=== PATIENT | male | born 1985 | race Caucasian/White ===

== ENCOUNTER 2020-10-12 08:26 | Emergency (ER) | payer OTHER ==
[~2020-10-12] VITALS: Ht 177.8 cm; Wt 93.0 kg
[2020-10-12 08:30] VITALS: BP 137/90
--- NOTE | 2020-10-12 09:23 | PHYS DOC ---
Past History Past Medical History: No Pertinent History Past Surgical History: No Surgical History Alcohol Use: Occasionally Adult General Chief Complaint Chief Complaint: BACK PAIN - NO INJURY [facility] HPI Patient is a 34-year-old man previously healthy male who presents to the emergency room complaining of low back pain that started after he played golf [employer] this week. He has had pain like this previously. He is not sure what causes the pain. He states it feels like a spasm. He took Robaxin last night which helps but he cannot take it during the day because it makes him very sleepy and he cannot think straight. He denies any difficulty with bladder or bowels. He denies any difficulty with numbness or weakness. He has not had any kind of fevers. He denies any trauma. Review of Systems Review of Systems Complete ROS is negative unless otherwise documented in HPI Allergies Allergies Allergies Coded Allergies Type Severity Reaction Last Updated Verified No Known Drug Allergies 10/12/20 No Physical Exam Physical Exam General: Awake, alert, NAD. Well Nourished, well hydrated. Cooperative HEENT: Atraumatic, EOMI, PERRL, airway patent, moist oral mucosa Neck: Supple, trachea midline Respiratory: CTA bilaterally, normal effort, no wheezing/crackles CV: RRR, no murmur, cap refill <2 GI: Soft, nondistended, nontender, no masses MSK: No obvious deformities, no spinal tenderness, back appears normal and symmetrical Skin: Warm, dry, intact Neuro: A&O x3, speech NL, sensory and motor grossly intact, no focal deficits Psych: Normal affect, normal mood, not suicidal or homicidal Current Patient Data Vital Signs Vital Signs Date Time Temp Pulse Resp B/P (MAP) Pulse Ox O2 Delivery O2 Flow Rate FiO2 10/12/20 08:30 97.9 84 16 137/90 (106) 96 Room Air EKG EKG [] Radiology/Procedures Radiology/Procedures [] Heart Score Risk Factors: Risk Factors: DM, Current or recent (<one month) smoker, HTN, HLP, family history of CAD, obesity. Risk Scores: Risk Factors: DM, Current or recent (<one month) smoker, HTN, HLP, family history of CAD, obesity. Course & Med Decision Making Course & Med Decision Making Pertinent Labs and Imaging studies reviewed. (See chart for details) Patient is a 34-year-old male who presents to the Emergency room with non- traumatic back pain. Patient denies bowel incontinence, urinary retention, fever, numbness, weakness. On exam, patient does not have a neurologic deficits, saddle anesthesia, gait difficulty, signs of trauma, or wounds near area of pain. Patient does not have a history of cancer or prolonged steroid use. At this time, patient does not have any signs, symptoms, or risk factors of emergent causes of back pain making cauda equina, spinal abscess, transverse myelitis, fractures, and other causes of emergent back pain highly unlikely. At this time, patient does not need any further work up for their back pain and will be treated symptomatically. Patient's test results and vitals while in the ED were fully reviewed and discussed with the patient. Patient is stable and at this time does not need admission to the hospital. We have discussed strict return precautions and the importance of following up with their Primary Care Physician. Patient stated understanding and was given an opportunity to ask any questions. Patient is in agreement with plan. Dragon Disclaimer Dragon Disclaimer This electronic medical record was generated, in whole or in part, using a voice recognition dictation system. Departure Departure: Impression: Primary Impression: Back pain Disposition: 01 DC HOME SELF CARE/HOMELESS Condition: STABLE Referrals: PCP,UNKNOWN (PCP) JAN WILKINS MD, JOHN N MD Patient Instructions: Back Exercises, [id number], Back Pain, Adult JAD PHILLIPS MD Oct 12, 2020 09:23
--- NOTE | 2020-10-12 09:45 | RAD ---
PROCEDURE: XR LUMBAR SPINE 2-3V STUDY DATE: 10/12/2020 CLINICAL INDICATION / HISTORY: Reason: lower back pain / Spl. Instructions: / History: . TECHNIQUE: AP, lateral and coned-down lateral views of the lumbar spine were obtained COMPARISON: None FINDINGS: Five lumbar segments are identified. Lumbar vertebral bodies are normal in height and align ment. Disc height is maintained. Pedicles are intact. IMPRESSION: Normal lumbar spine x-rays. Electronically signed by: Waleska Sanderson MD (10/12/2020 9:43 AM) [id number]
[2020-10-12] MEDS ORDERED: METH4TAB2 PO (09:50)
== END 2020-10-12 09:58 | disposition home or self-care (01) ==
LOC: ER 08:26
DX: M54.5 Low back pain (principal); M62.830 Muscle spasm of back
CPT/HCPCS: 72100; 99283